=== PATIENT | female | born 1955 | race Caucasian/White ===

== ENCOUNTER → 2016-08-21 | Outpatient (CLI) | payer BC ==
[~2016-08-21] MED LIST: CLR10 PO; ESCI10TA17 PO; MULT-506 PO
== END | disposition home or self-care (01) ==
LOC: C.PATHSPEC 10:53
PROVIDERS: ATTEND Obstetrics & Gynecology
DX: N84.0 Polyp of corpus uteri (principal)

== ENCOUNTER → 2016-11-05 | Outpatient (CLI) | payer BC ==
--- NOTE | 2016-11-05 08:44 | DIAGNOSTIC IMAGING REPORT ---
RIGHT ANKLE 3 VIEWS CLINICAL HISTORY: Right ankle pain. FINDINGS: 3 views of the right ankle are obtained. No prior studies are available for comparison at the time of dictation. The skeletal structures are well mineralized. No fracture is seen. The ankle mortise is intact. There is a large plantar calcaneal enthesophyte. No joint effusion is identified. The overlying soft tissues are within normal limits. Small venous varicosities are suggested in the calf. IMPRESSION: No acute bony abnormality is seen in the right ankle. Electronically signed by: Jeevan Tam M.D. 11/05/2016 8:43 AM Dictated Date/Time: 11/05/2016 8:22 AM
== END | disposition home or self-care (01) ==
LOC: C.RDSM 13:39
PROVIDERS: ATTEND Family Medicine
DX: M25.571 Pain in right ankle and joints of right foot (principal)

== ENCOUNTER → 2017-02-14 | Outpatient (CLI) | payer BC ==
--- NOTE | 2017-02-14 13:54 | MAMMOGRAPHY REPORT ---
BILATERAL DIGITAL SCREENING MAMMOGRAM TOMOSYNTHESIS WITH CAD: 02/14/2017 CLINICAL HISTORY: Routine screening. Patient has no complaints. TECHNIQUE: Breast tomosynthesis in addition to standard 2D mammography was performed. Current study was also evaluated with a Computer Aided Detection (CAD) system. COMPARISON: Comparison is made to exams dated: 02/13/2016 mammogram, 02/06/2015 mammogram, 4 mammogram, 02/02/2013 mammogram, 01/31/2012 mammogram, and 01/29/2011 mammogram - [facility]. BREAST COMPOSITION: The tissue of both breasts is heterogeneously dense, which may obscure small mas ses. FINDINGS: No suspicious masses, calcifications, or areas of architectural distortion are noted in ei ther breast. There has been no significant interval change compared to prior exams. IMPRESSION: ACR BI-RADS CATEGORY 1: NEGATIVE There is no mammographic evidence of malignancy. A 1 year screening mammogram is recommended. The pa tient will receive written notification of the results. Approximately 10% of breast cancers are not detected with mammography. A negative mammographic report should not delay biopsy if a clinically suggestive mass is present. Renate Carrillo M.D. ah/:02/14/2017 08:49:13 Print Color Operator: Kassie AGUILLON(Yumi)(Yuan)(BD), [facility] letter sent: Normal 1/2 BI-RADS Code: ACR BI-RADS Category 1: Negative
== END | disposition home or self-care (01) ==
LOC: C.MAMM 08:24
PROVIDERS: ATTEND Obstetrics & Gynecology
DX: Z12.31 Encounter for screening mammogram for malignant neoplasm of breast (principal)

== ENCOUNTER → 2017-05-12 | Outpatient (CLI) | payer BC ==
[~2017-05-12] MED LIST changes: +VITAMIN D PO
== END | disposition home or self-care (01) ==
LOC: C.RDSM 17:19
PROVIDERS: ATTEND Physical Medicine & Rehabilitation Sports Medicine
DX: M25.572 Pain in left ankle and joints of left foot (principal)

== ENCOUNTER → 2017-06-10 | Day surgery (SDC) | payer OTHER ==
[2017-05-14 13:21] VITALS: Ht 170.2 cm; Wt 84.1 kg
[~2017-06-10] VITALS: Ht 170.2 cm; Wt 84.1 kg
[~2017-06-10] MED LIST changes: +ATROPINE SULFATE 0.1 MG/ML 5ML SYR IV PRN; +CEFAZOLIN 2000MG IV PUSH 15 ML IV SCH; -CLR10 PO; +DEXAMETHASONE SOD INJ 4 MG/ML VIAL ONE; +EpHEDrine SULFATE INJ 50 MG/ML AMP IV PRN; +FENTANYL CITRATE INJ 50 MCG/1 ML 2 ML VIAL ONE; +HYDROCODONE/ACETAMIN 5/325MG TAB PO PRN; +LACTATED RINGER'S 1000ML 1,000 ML IV SCH; +LIDOCAINE HCL 2% 2 ML VIAL (20MG/ML) ONE; +MIDAZOLAM HCL 1 MG/ML 2ML VIAL ONE; +ONDANSETRON INJ 2 MG/ML 2 ML VIAL IV PRN; +ONDANSETRON INJ 2 MG/ML 2 ML VIAL ONE; +PROPOFOL IV EMULSION 10 MG/ML 20 ML VIAL IV ONE; +SODIUM CHLORIDE 0.9% 1000ML 1,000 ML IV SCH
--- NOTE | 2017-06-10 09:20 | History & Physical Bridge Note ---
H&P Re-Evaluation Bridge Note: I have examined the patient, reviewed the History & Physical and in the interval since the performance of the History & Physical I have noted the following changes of clinical significance:consent obtained. No changes noted
--- NOTE | 2017-06-10 09:21 | Discharge Instructions ---
Discharge Instructions Date of Service Jun 10, 2017. Visit Reason for Visit: Left Tarsal Syndrome Discharge Discharge Diagnosis / Problem: same Discharge Goals Goal(s): Decrease discomfort, Improve function Medications Stopped Medications Name(s): na Restart Stopped Medication(s): resume all scripts Activity Recommendations Activity Limitations: as noted below Lifting Limitations: until after follow-up appointment Exercise/Sports Limitations: until after follow-up appointment May Resume Sexual Activity: after follow-up appointment Shower/Bathe: keep incision dry Driving or Machine Use: resume 1 day after discharge Weightbearing Status: Left weightbearing (as tolerated) Anesthesia . Post Anesthesia Instructions: If you have had General Anesthesia or IV Sedation: * Do not drive today. * Resume driving when surgeon permits. * Do not make important decisions or sign legal documents today. * Call surgeon for: 1. Temperature elevations greater than 101 degrees F. 2. Uncontrollable pain. 3. Excessive bleeding. 4. Persistent nausea and vomiting. 5. Medication intolerance (nausea, vomiting or rash). * For nausea and vomiting use only clear liquids such as: tea, soda, bouillon until nausea subsides, then gradually increase diet as tolerated. * If you have any concerns or questions, call your surgeon's office. If physician is unavailable and it is an emergency, call 911 or go to the nearest emergency room. . Instructions / Follow-Up Instructions / Follow-Up DIET: * Resume previous diet. MEDICATIONS: * Please take your prescriptions as instructed at your pre-op appointment and/ or see medication discharge instructions listed above. * If concerns develop, call your physician's office at . SPECIAL CARE INSTRUCTIONS: * Ice/Elevate as instructed. * Keep dressing clean, dry, intact. * Your surgical extremity may be discolored due to prepping agents used on the skin. A bluish-green tint is a normal variant and should not cause alarm. Call your doctor at [phone] if: * Temperature above 101 degrees * Pain not relieved by pain medicine ordered * There is increased drainage or redness from any incision * You have any unanswered questions, problems or concerns. FOLLOW UP VISIT: * If not already scheduled, please call the office at to schedule a follow-up appointment. Diet Recommendations Recommended Home Diet: resume previous diet Procedures Procedures Performed: see op note Pending Studies Studies pending at discharge: no Medical Emergencies . Who to Call and When: Medical Emergencies: If at any time you feel your situation is an emergency, please call 911 immediately. . Non-Emergent Contact Non-Emergency issues call your: Specialist Call Non-Emergent contact if: wound has increased drainage, wound has increased redness, wound has increased pain . . "Provider Documentation" section prepared by Zach Chiang. .
--- NOTE | 2017-06-10 10:18 | [facility] Post Operative Brief Note ---
Immediate Operative Summary Operative Date Jun 10, 2017. Pre-Operative Diagnosis Left Tarsal Syndrome Post-Operative Diagnosis same as pre op Procedure(s) Performed Left Tarsal Tunnel Release Surgeon Dr Chiang Belt Notcher Surgeon(s) Jerry Sanchez MD and TIMOTEO Pandey Estimated Blood Loss trace Findings Consistent with Post-Op Diagnosis Fluids (cc crystalloids) 650cc Specimens none Drains None Anesthesia Type General Complication(s) none Disposition Disposition: Recovery Room / PACU
[2017-06-10] MEDS: FENTANYL CITRATE INJ 50 MCG/1 ML 2 ML VIAL IV PRN ×2 (10:36→10:44)
--- NOTE | 2017-06-10 10:39 | OPERATIVE REPORT ---
DATE OF OPERATION: 06/10/2017 SURGEON: Zach Chiang MD REELING OPERATOR: Daniel. SECOND REELING OPERATOR: Orion Lindsey PA-C PREOPERATIVE DIAGNOSIS: Tarsal tunnel syndrome, left lower extremity. POSTOPERATIVE DIAGNOSIS: Same. OPERATIONS PERFORMED: Left tarsal tunnel release and decompression of posterior tibial nerve. PERIOPERATIVE SITUATION: Medically cleared female with intractable numbness and tingling in her foot. She also has some back pain since her element of double crush, but has been documented clinically and by EMG that she has tarsal tunnel. She wished to proceed with surgical treatment. DESCRIPTION OF PROCEDURE: The patient was appropriately identified, site verified, consent verified and antibiotic confirmed as being given. The left lower extremity was prepped and draped in the usual routine fashion with the tourniquet inflated to 275 mmHg for a total of approximately 20 minutes. Posterior approach hockey stick type incision was made to the left ankle. Blunt dissection was carried down to full thickness flaps to the fascia. The fascia was then incised from proximal to distal and nerve decompressed from proximal to distal. There were several crossing veins, which were ligated. The artery was protected. The fascial sling distally went down into the fibers tunnel medially was then opened up. There was 1 crossing vein there that was released as well. This decompressed the nerve nicely and we could see the branching points of the nerve. The wound was then irrigated. The tourniquet deflated. Minor bleeding points controlled with the electrocautery. The wound again irrigated one final time and closed with horizontal mattress 3-0 nylon sutures. Appropriate soft tissue dressing applied. Estimated blood loss trace. Crystalloid 650 mL. DVT prophylaxis per protocol. I attest to the content of the Intraoperative Record and any orders documented therein. Any exception s are noted below.
[2017-06-10 11:09] VITALS: TEMP 36.8
--- NOTE | 2017-06-10 11:19 | Anesthesia Progress Nt - [facility] ---
Anesthesia Post Op Note Date & Time Jun 10, 2017 at 11:19 Vital Signs Pain Intensity: 4 Vital Signs Past 12 Hours Date Time Temp Pulse Resp B/P (MAP) Pulse Ox O2 Delivery O2 Flow Rate FiO2 06/10/17 11:09 36.8 55 16 102/57 (72) 95 Room Air 06/10/17 11:03 56 11 95 06/10/17 11:03 57 11 06/10/17 11:01 36.4 95 Room Air 06/10/17 11:01 103/52 06/10/17 10:58 60 19 06/10/17 10:58 60 19 92 06/10/17 10:57 61 16 06/10/17 10:57 59 16 108/50 92 06/10/17 10:52 56 10 96 06/10/17 10:52 56 10 06/10/17 10:51 95/51 06/10/17 10:47 52 8 96 06/10/17 10:47 51 8 06/10/17 10:46 89/49 06/10/17 10:42 54 15 97 06/10/17 10:42 54 15 06/10/17 10:41 53 11 06/10/17 10:41 52 11 82/48 97 06/10/17 10:36 57 14 06/10/17 10:36 56 14 99/55 98 06/10/17 10:31 61 18 104/62 97 06/10/17 10:31 61 18 06/10/17 10:28 111/54 06/10/17 10:26 36.5 61 16 111/54 97 Mask 8 06/10/17 08:27 37.2 62 16 124/67 (86) 95 Room Air Notes Mental Status: alert / awake / arousable, participated in evaluation Pt Amnestic to Procedure: Yes Nausea / Vomiting: adequately controlled Pain: adequately controlled Airway Patency, RR, SpO2: stable & adequate BP & HR: stable & adequate Hydration State: stable & adequate Anesthetic Complications: no major complications apparent
[2017-06-10 12:05] VITALS: BP 106/65; PULSE 54; O2SAT 96
--- NOTE | 2017-06-11 13:46 | [facility] Operative Report ---
Operative Report Operative Date Jun 11, 2017. Pre-Operative Diagnosis Left Tarsal Syndrome Post-Operative Diagnosis Left foot same as pre op Procedure(s) Performed Left foot tarsal Tunnel Release Surgeon Dr Chiang M[employer] Kiln Operator Surgeon(s) Jerry Sanchez MD and TIMOTEO Pandey Estimated Blood Loss trace Findings Left foot nerve entrapment Fluids 650cc Specimens none Drains None Anesthesia Type General Complication(s) none Disposition Recovery Room / PACU Indications This 61-year-old white female presented the office with complaints of left foot numbness and tingling that was worse with activity. She had tried conservative care measures without improvement. X-ray and EMG were obtained. She elected to proceed with surgical intervention after being educated about potential risks and outcomes. Description of Procedure Patient was taken to the operating room where she was given general anesthesia. She was prepped and draped in usual sterile fashion. See Dr. Chiang's operative report for specifics of the procedure. I was present for the entire case from initial patient positioning through final wound closure. Assistance was provided in tissue retraction, hemostasis, and final wound closure. Patient was taken to the recovery room in satisfactory condition. I attest to the content of the Intraoperative Record and any orders documented therein. Any exceptions are noted below.
== END | disposition home or self-care (01) ==
LOC: X.SURG 08:12
PROVIDERS: ATTEND Physical Medicine & Rehabilitation Sports Medicine
DX: G57.52 Tarsal tunnel syndrome, left lower limb (principal); F41.9 Anxiety disorder, unspecified; M19.90 Unspecified osteoarthritis, unspecified site; E66.9 Obesity, unspecified; Z98.890 Other specified postprocedural states; Z79.899 Other long term (current) drug therapy; Z81.8 Family history of other mental and behavioral disorders; Z83.3 Family history of diabetes mellitus; Z82.49 Family history of ischemic heart disease and other diseases of the circulatory system; Z82.0 Family history of epilepsy and other diseases of the nervous system; Z82.3 Family history of stroke